=== PATIENT | female | born 1950 | race Caucasian/White ===

== ENCOUNTER → 2018-06-29 | Outpatient (CLI) | payer OTHER ==
[~2018-06-29] MED LIST: ELIQUIS5 MG PO; FISH OIL 1,001000 M2 PO; LASIX 20 MG TAB20 MG PO; LOVASTATIN 20 M20 MG PO; MAGOX 400400 MG PO; MELATONIN5 M5 PO; PACERONE 200 M200 M1 PO; ROGAINE60 M1 TOP; TUMS PO; UNICOMPLEX M TA1 TA1 PO; VITAMINC500 PO
--- NOTE | ~2018-06-29 | EKG ---
[address] [place] [address] ELECTROCARDIOGRAM REPORT Name: SERENITY BEAR Room #: [facility]#: [id number] Admission: 06/29/18 Attend Phys: Luis Rodriguez MD Discharge: Date of : 50 Report #: [id number] THIS REPORT FOR: //name// [facility] Test Date: 2018-06-29 Test Time: 15:30:59 Pat Name: SERENITY BEAR Department: Room: Gender: F Commutator Tester: [place] : 1950 Requested By: Luis Rodriguez Order Number: [id number] MD: Lorenzo Arcos Measurements Intervals [place] Rate: 57 P: -59 ND: 231 QRS: 18 QRSD: 96 T: 40 QT: 457 QTc: 445 Interpretive Statements Sinus or ectopic atrial rhythm Prolonged ND interval No previous ECG available for comparison Electronically Signed On 06-30-2018 8:06:42 CDT by Lorenzo Arcos [email or web address] <ELECTRONICALLY SIGNED> By: Lorenzo Arcos MD, [facility] 06/30/18 0806 1530 1530 Lorenzo Arcos MD, FACC /EPI
== END | disposition home or self-care (01) ==
LOC: LITH 14:58
DX: N20.0 Calculus of kidney (principal); E78.00 Pure hypercholesterolemia, unspecified; Z90.710 Acquired absence of both cervix and uterus; Z98.890 Other specified postprocedural states; Z90.89 Acquired absence of other organs; Z79.899 Other long term (current) drug therapy; Z88.2 Allergy status to sulfonamides; Z91.018 Allergy to other foods